=== PATIENT | female | born 1955 | race Caucasian/White ===

== ENCOUNTER 2025-06-07 23:50 | Emergency (ER) | payer OTHER ==
[~2025-06-07] VITALS: Ht 182.9 cm; Wt 75.2 kg
[2025-06-08 00:03] VITALS: TEMP 98
--- NOTE | 2025-06-08 00:32 | Physician Documentation ---
History of Present Illness ~ Chief Complaint: Head Pain Stated Complaint: FOREHEAD SWELLING Time Seen by MD: 00:30 Mode of Arrival: POV HPI Patient presents to the emergency room with a lump to her forehead. 1-2 months ago patient was hanging a cloth on a clothes line in the clip bounced off smacking her in the forehead. Since that time she has had a small growth with a gradually enlarging since that time. She came in today because the pain associated with the growth got to the point where she felt like she needed to be seen. She has not had a CT scan but she did have an ultrasound which she states the results were inconclusive. Medication Reconciliation Allergies: Coded Allergies: codeine (Verified Allergy, Unknown, CONVULSIONS, 06/08/25) Review of Systems ROS All review of systems negative except as per HPI Physical Exam Vital Signs: Temperature: 98.0, Source: Oral, Heart Rate: 94, Respiratory Rate: 16, BP: 126/67, Pulse Oximetry: 96, Weight: 75.200 Oxygen Flow Rate: 0 Physical Exam General: Patient is awake, alert, oriented x4 in no acute distress Head: Normocephalic and atraumatic. Eyes: Conjunctival normal. EOMI. PERRL. ENT: Mucous membranes moist. 3 x 3 cm fluctuant area above patient's right eyebrow without erythema Neck: Supple, trachea is midline. Chest: Clear to auscultation bilaterally without rales, rhonchi, or wheezes. There is no accessory muscle use or retractions. Cardiac: RRR without murmurs, gallops, or rubs. Procedures Procedures Incision and drainage: Status post informed verbal consent patient was anesthetized with 1% lidocaine with epinephrine. 1 cm incision performed along with de loculation however on attempted de loculation that has clear that patient's mass was filled with nothing but fat consistent with diagnosis of lipoma. Progress Results/Orders Results/Orders Vital Signs 06/08/25 06/08/25 00:03 00:16 Temp 98.0 Pulse 94 Resp 16 16 B/P (MAP) 126/67 Pulse Ox 96 O2 Flow Rate 0 Medical Decision Making Findings Patient presents to the emergency room with mass to her forehead. Differentials include but are not limited to hematoma, lipoma, epidermal inclusion cyst, abscess. Incision and drainage performed confirming diagnosis of lipoma. Need to follow up with a doctor discussed Departure Disposition: HOME / SELF CARE / HOMELESS Impression: Primary Impression: Lipoma Condition: Stable Discharge Instructions: Lipoma Additional Instructions: Follow up with your doctor for definitive management of lipoma. Referrals: NO PRIMARY CARE PROVIDER (PCP) Prescriptions Tramadol HCl (Tramadol HCl) 50 Mg Tablet 1 TAB PO Q6H PRN PRN for pain, #20 TAB Prov: MAGAN GORDON MD 06/08/25 Education Educated: Patient Educated regarding: diagnosis, treatment, need for follow up Signature Scribe Signature: No scribe Attestation: The note accurately reflects work and decisions made by me.Magan Gordon MD 06/08/25 01:17 MAGAN GORDON MD Jun 08, 2025 00:32
[2025-06-08] MEDS ORDERED: TRAM50TA2 PO (01:17)
[2025-06-08] MEDS: ketorolac trometh 15mg/ml vial 15 MG/ML ML IM ONE (01:27)
[2025-06-08 01:34] VITALS: BP 124/65; PULSE 90; RESP 16; O2SAT 99
== END 2025-06-08 01:35 | disposition home or self-care (01) ==
LOC: ER 23:51
DX: D17.0 Benign lipomatous neoplasm of skin and subcutaneous tissue of head, face and neck (principal)
CPT/HCPCS: 10060; 96372; 99283; J1885; A6449